=== PATIENT | female | born 2000 | race Caucasian/White ===

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

== ENCOUNTER 2019-05-17 16:55 | Emergency (ER) | payer MEDICAID ==
[2019-05-17 17:45] VITALS: BP 121/84
[2019-05-17] MEDS ORDERED: dexamethasone 4mg tablet PO ONE (19:00)
[2019-05-17] MEDS ORDERED: PRED20TA PO (19:10)
== END 2019-05-17 20:05 | disposition home or self-care (01) ==
LOC: ER 16:56
DX: J02.9 Acute pharyngitis, unspecified (principal); B27.90 Infectious mononucleosis, unspecified without complication; Z79.899 Other long term (current) drug therapy
CPT/HCPCS: 99283

== ENCOUNTER 2019-05-19 11:49 | Emergency (ER) | payer MEDICAID ==
[~2019-05-19] VITALS: Ht 162.6 cm; Wt 60.0 kg
[~2019-05-19 11:49] MED LIST changes: +PRED20TA PO
[2019-05-19 13:33] VITALS: BP 132/76
[2019-05-19 14:00] LABS: BASOPHILS % (AUTO) 0.2 % (0-1); EOSINOPHILS % (AUTO) 0.1 % (0-6); HEMOGLOBIN 12.6 g/dl (12.0-16.0); LYMPHOCYTES # (AUTO) 2.7 X10'3 (1.1-4.8); MEAN CORPUSCULAR HGB CONC 33.3 g/dL (33.0-36.5); MEAN CORPUSCULAR VOLUME 87.1 FL (78-98); MEAN PLATELET VOLUME 8.7 FL (7.4-10.4); MONOCYTES # (AUTO) 0.8 X10'3 (0-0.9); MONOCYTES % (AUTO) 8.1 % (2-12); NEUTROPHILS % (AUTO) 63.6 % (42-75); PLATELET COUNT 249 X10'3 (140-440); RED BLOOD COUNT 4.36 X10'6 (4.20-5.60); RED CELL DISTRIBUTION WIDTH 13.9 % (11.5-14.5); WHITE BLOOD COUNT 9.5 X10'3 (4.5-11.0)
[2019-05-19 14:02] LABS: ALANINE AMINOTRANSFERASE 12 U/L (12-78); ALBUMIN 4.1 G/DL (3.4-5.0); ALBUMIN/GLOBULIN RATIO 1.1 (1.1-1.5); ALKALINE PHOSPHATASE 70 IU/L (20-180); ANION GAP 12 (8-16); ASPARTATE AMINO TRANSFERASE 15 U/L (10-37); BILIRUBIN,TOTAL 0.3 MG/DL (0.1-1.0); BLOOD UREA NITROGEN 16 MG/DL (7-18); BUN/CREATININE RATIO 22.9 (6.6-38.0); CALCIUM 9.5 MG/DL (8.5-10.1); CHLORIDE 107 MMOL/L (99-107); GLUCOSE 97 MG/DL (70-104); LIPASE 73 U/L (73-393); POTASSIUM 3.5 MMOL/L (3.5-5.1); SODIUM 144 MMOL/L (135-145); TOTAL CARBON DIOXIDE 25.2 MMOL/L (24-32); TOTAL PROTEIN 7.8 G/DL (6.4-8.2); eGFR > 90 ML/MIN
== END 2019-05-19 14:42 | disposition home or self-care (01) ==
LOC: ER 11:49
DX: R10.12 Left upper quadrant pain (principal); Z86.19 Personal history of other infectious and parasitic diseases; Z79.2 Long term (current) use of antibiotics
CPT/HCPCS: 36415; 76700; 80053; 83690; 85025; 99284

== ENCOUNTER 2020-02-24 14:28 | Emergency (ER) | payer MEDICAID ==
[~2020-02-24] VITALS: Ht 165.1 cm; Wt 54.5 kg
[~2020-02-24 14:28] MED LIST changes: -CIPR2.5D18 OP; +CIPR2.5D21 OP; -PRED20TA PO
== END 2020-02-24 15:00 | disposition home or self-care (01) ==
LOC: ER 14:28
DX: U07.1 COVID-19 (principal); R50.9 Fever, unspecified; R53.83 Other fatigue; R05 Cough; R19.7 Diarrhea, unspecified; R43.8 Other disturbances of smell and taste; Z79.2 Long term (current) use of antibiotics; Z79.899 Other long term (current) drug therapy
CPT/HCPCS: 36415; 87635; 99283

== ENCOUNTER 2023-09-24 12:29 | Emergency (ER) | payer BC, MEDICAID ==
[~2023-09-24] VITALS: Ht 165.1 cm; Wt 48.9 kg
[2023-09-24 12:44] VITALS: BP 158/86; PULSE 73; RESP 14; TEMP 98.3; O2SAT 96
[2023-09-24] MEDS ORDERED: IBUP-1984 PO (13:43)
== END 2023-09-24 15:51 | disposition home or self-care (01) ==
LOC: ER 12:29
DX: M71.22 Synovial cyst of popliteal space [Baker], left knee (principal); Z79.2 Long term (current) use of antibiotics; Z79.899 Other long term (current) drug therapy
CPT/HCPCS: 73564; 76882; 99284

== ENCOUNTER 2024-08-28 20:54 | Emergency (ER) | payer BC ==
[~2024-08-28] VITALS: Ht 165.1 cm; Wt 58.4 kg
--- NOTE | 2024-08-28 21:54 | RADIOLOGY REPORT ---
COMPUTERIZED TOMOGRAPHY OF THE HEAD WITHOUT CONTRAST REASON FOR STUDY: headache COMPARISON: None TECHNIQUE: Helical tomographic scans were obtained through the brain. 2-D coronal and sagittal refor matted images are provided. Automated exposure control was used. RADIATION DOSE: CTDI: 60 mGy DLP: 1004 mGy-cm FINDINGS: No suspicious intracranial hyperdensity to suggest acute blood. There is no mass effect n or midline shift. There is no hydrocephalus. The suprasellar cistern is intact. The calvarium is inta ct. The visualized mastoid air cells and paranasal sinuses are clear. IMPRESSION: No acute intracranial abnormality.
[2024-08-28 21:56] LABS: BILIRUBIN,URINE NEGATIVE (Neg); CLARITY,URINE SLIGHTLY CLOUDY (Clear); COLOR,URINE YELLOW (Yellow); GLUCOSE, URINE NEGATIVE (Neg); KETONES,URINE NEGATIVE (Neg); LEUKOCYTE ESTERASE ,URINE LARGE (Neg); NITRITES, URINE NEGATIVE (Neg); OCCULT BLOOD,URINE LARGE (Neg); PROTEIN,URINE NEGATIVE (Neg); UROBILINOGEN,URINE 0.2 E.U/dL (0.2-1.0)
[2024-08-28 21:58] LABS: UA COLLECTION TYPE CLN CATCH MIDSTREAM
[2024-08-28] MEDS: normal saline 1000ml 1,000 ML IV ONE (21:58)
[2024-08-28 22:03] LABS: SQUAMOUS EPITHELIAL CELL,UR MODERATE /LPF (FEW)
[2024-08-28 22:04] LABS: MUCUS STRANDS FEW /LPF (Neg); WBC CLUMPS,URINE FEW /HPF (NEGATIVE); WBC,URINE 50-100 /HPF (0-4)
[2024-08-28 22:05] LABS: BACTERIA,URINE 1+ /HPF (Neg)
[2024-08-28] MEDS: metoclopramide 5 mg/ml inj IV ONE (22:40)
[2024-08-28] MEDS: diphenhydrAMINE 50 mg/ml inj IV ONE (22:40)
[2024-08-28 22:41] LABS: BASOPHILS % (AUTO) 0.3 % (0-1); EOSINOPHILS # (AUTO) 0.1 X10'3 (0-0.9); EOSINOPHILS % (AUTO) 1.3 % (0-6); HEMATOCRIT 41.2 % (35.0-45.0); HEMOGLOBIN 13.5 g/dl (12.0-16.0); LYMPHOCYTES # (AUTO) 2.1 X10'3 (1.1-4.8); LYMPHOCYTES % (AUTO) 22.4 % (21-51); MEAN CORPUSCULAR HEMOGLOBIN 27.9 PG (27.0-31.0); MEAN CORPUSCULAR HGB CONC 32.9 g/dL (33.0-36.5); MEAN CORPUSCULAR VOLUME 84.9 FL (78-98); MEAN PLATELET VOLUME 7.7 FL (7.4-10.4); MONOCYTES # (AUTO) 0.4 X10'3 (0-0.9); MONOCYTES % (AUTO) 4.6 % (2-12); NEUTROPHILS # (AUTO) 6.6 X10'3 (1.8-7.7); NEUTROPHILS % (AUTO) 71.4 % (42-75); PLATELET COUNT 308 X10'3 (140-440); RED BLOOD COUNT 4.85 X10'6 (4.20-5.60); RED CELL DISTRIBUTION WIDTH 15.2 % (11.5-14.5); WHITE BLOOD COUNT 9.2 X10'3 (4.5-11.0)
[2024-08-28] MEDS: ketorolac trometh 30MG/ML vial 30 MG/ML VIAL IV ONE (22:41)
[2024-08-28 22:58] LABS: ALANINE AMINOTRANSFERASE 32 U/L (12-78); ALBUMIN 3.4 G/DL (3.4-5.0); ALBUMIN/GLOBULIN RATIO 0.9 (1.1-1.5); ALKALINE PHOSPHATASE 124 IU/L (46-116); ANION GAP 11 (8-16); ASPARTATE AMINO TRANSFERASE 21 U/L (10-37); BILIRUBIN,TOTAL 0.3 MG/DL (0.1-1.0); BLOOD UREA NITROGEN 22 MG/DL (7-18); BUN/CREATININE RATIO 29.3 (10.0-20.0); CALCIUM 8.9 MG/DL (8.5-10.1); CHLORIDE 107 MMOL/L (99-107); CREATININE 0.75 MG/DL (0.40-0.90); GLUCOSE 108 MG/DL (70-104); POTASSIUM 3.8 MMOL/L (3.5-5.1); SODIUM 142 MMOL/L (135-145); TOTAL CARBON DIOXIDE 23.6 MMOL/L (24-32); TOTAL PROTEIN 7.1 G/DL (6.4-8.2); eCRCL 103 ML/MIN; eGFR > 90 ML/MIN
[2024-08-28] MEDS: magnesium sulf-water 2g/50mL 50 ML IV ONE (23:03)
[2024-08-29 00:01] VITALS: TEMP 96.8
[2024-08-29] MEDS: acetaminophen 1,000mg/100ml IV 100 ML IV ONE (00:15)
[2024-08-29] MEDS: HYDROmorphone inj. 0.5 MG/0.5 ML DISP.SYRIN IV ONE (00:58)
--- NOTE | 2024-08-29 00:58 | Physician Documentation ---
History of Present Illness ~ Chief Complaint: Complications Stated Complaint: HEADACHE Time Seen by MD: 21:16 Primary Medical Doctor: [facility] Mode of Arrival: POV, Ambulatory HPI 24 year old female is 10 days s/p normal vaginal delivery of full term baby. Her course was uncomplicated. She reports developing a splitting headache today, R>L, throbbing, constant. She also passed several clots since her delivery but denies abdominal pain, fevers, N/V/D. She reports that her lower extremity swelling, present for most of her , has resolved. Medication Reconciliation Allergies: Coded Allergies: No Known Allergies (Unverified , 08/28/24) Scheduled Amoxicillin (Amoxicillin), 875 MG PO BID Ciprofloxacin Hcl Ophth* (Ciloxan 0.35 Ophth Drops*), 2 DROP OP Q4HWA Ketotifen Fumarate (Zyrtec Itchy Eye), 1 DROP OP Q8H Miscellaneous Medications [ Control Pill], (Reported) Past Medical History Past Medical History: No Pertinent History, *ENT* Past Surgical History: no surgical history Alcohol Use: None Drug Use: none Lives with: Family Lives In: Home Occupation: child Review of Systems All Other Systems at this time: Reviewed and Negative Physical Exam Vital Signs: RN Vital Signs have been reviewed: Yes, Temperature: 96.8, Source: Oral, Heart Rate: 60, Respiratory Rate: 16, BP: 125/75, Pulse Oximetry: 99, Weight: 58.400 Oxygen Flow Rate: 0 Physical Exam HEENT: PERRL, moist oral mucosa, EOMI Pulmonary: No respiratory distress Cardiac: RRR, no murmur, rub or gallop GI: nondistended, soft, nontender, no guarding, no rebound MSK: no deformity; no peripheral edema Skin: w/d/i, no rash Neuro: alert, nonfocal Psych: normal affect Progress Results/Orders Results/Orders Orders - JACOBO CONRAD MD Ct Head (08/28/24 21:18) Cult Urine + [place] Ct (08/28/24 22:07) Metoclopramide Inj (Reglan Inj) (08/28/24 22:10) Magnesium Sulf-Water 2g/50ml (Magnesium (08/28/24 22:55) Completed Orders - JACOBO CONRAD MD Cbc/Diff (08/28/24 21:18) CMP (08/28/24 21:18) Ct Head (08/28/24 21:18) Normal Saline 1000ml (Sodium Chloride 10 (08/28/24 21:25) Ua W/Microscopic, Cult If Ind (08/28/24 21:25) Diphenhydramine Inj (Benadryl Inj.) (08/28/24 22:10) Ketorolac Trometh 30mg/Ml Vial (Toradol (08/28/24 22:35) Hydromorphone 0.5 Mg/0.5 Ml/Pf (Dilaudid (08/28/24 22:55) Acetaminophen 1,000mg/100ml Iv (Ofirmev (08/28/24 22:55) Medications Received in ER Medications (Trade) Dose Ordered Sig/Jay Route PRN Reason Start Time Stop Time Status Last Admin Dose Admin Sodium Chloride 1,000 ml @ 1,000 mls/hr ONCE ONCE IV 08/28/24 21:25 08/28/24 22:24 DC 08/28/24 21:58 1,000 MLS/HR (Benadryl inj.) 50 mg ONCE ONCE IV 08/28/24 22:10 08/28/24 22:11 DC 08/28/24 22:40 50 MG (Reglan inj) 10 mg ONCE ONCE IV 08/28/24 22:10 08/28/24 22:11 DC 08/28/24 22:40 10 MG (Toradol inj. 30mg/ml) 30 mg ONCE ONCE IV 08/28/24 22:35 08/28/24 22:36 DC 08/28/24 22:41 30 MG Acetaminophen 100 ml @ 400 mls/hr ONCE ONCE IV 08/28/24 22:55 08/28/24 23:09 DC 08/29/24 00:15 400 MLS/HR Magnesium Sulfate 50 ml @ 25 mls/hr ONCE ONCE IV 08/28/24 22:55 08/29/24 00:54 08/28/24 23:03 25 MLS/HR Vital Signs 08/28/24 08/28/24 08/28/24 08/28/24 21:04 21:27 21:27 22:03 Temp 96.8 96.8 96.8 Pulse 79 69 60 Resp 15 16 16 16 B/P (MAP) 152/98 130/88 (102) 137/90 (106) Pulse Ox 99 99 99 O2 Flow Rate 0 0 08/28/24 08/28/24 08/28/24 08/28/24 22:15 22:29 22:41 22:43 Pulse 62 60 65 Resp 16 16 16 16 B/P (MAP) 150/120 (130) 149/96 (113) 161/106 (124) Pulse Ox 100 100 98 O2 Flow Rate 0 0 08/28/24 08/28/24 08/28/24 08/28/24 23:06 23:15 23:30 23:45 Pulse 59 56 62 65 Resp 18 16 16 16 B/P (MAP) 146/92 (110) 130/88 (102) 128/82 (97) 130/85 (100) Pulse Ox 100 100 99 99 O2 Flow Rate 0 0 0 0 08/29/24 08/29/24 00:01 00:17 Temp 96.8 Pulse 68 60 Resp 16 16 B/P (MAP) 121/64 (83) 125/75 (92) Pulse Ox 98 99 O2 Flow Rate 0 0 Laboratory Tests Test 08/28/24 21:25 08/28/24 21:50 Urine Specimen Description Cln catch midstream Urine Color Yellow Urine Clarity Slightly cloudy Urine pH 6.0 Urine Specific [place] 1.010 Urine Protein Negative Urine Glucose (UA) Negative Urine Ketones Negative Urine Occult Blood Large H Urine Nitrite Negative Urine Bilirubin Negative Urine Urobilinogen 0.2 Urine Leukocyte Esterase Large H Urine RBC 10-20 Urine WBC 50-100 H Urine WBC Cl[place] Few Urine Squamous Epithelial Cells Moderate Urine Bacteria 1+ Urine Mucus Few Urine Other Urine Culture Indicated Indicated Volume Urine Centrifuged 10 ml Urine Comment White Blood Count 9.2 Red Blood Count 4.85 Hemoglobin 13.5 Hematocrit 41.2 Mean Corpuscular Volume 84.9 Mean Corpuscular Hemoglobin 27.9 Mean Corpuscular Hemoglobin Concent 32.9 L Red Cell Distribution Width 15.2 H Platelet Count 308 Mean Platelet Volume 7.7 Neutrophils (%) (Auto) 71.4 Lymphocytes (%) (Auto) 22.4 Monocytes (%) (Auto) 4.6 Eosinophils (%) (Auto) 1.3 Basophils (%) (Auto) 0.3 Neutrophils # (Auto) 6.6 Lymphocytes # (Auto) 2.1 Monocytes # (Auto) 0.4 Eosinophils # (Auto) 0.1 Basophils # (Auto) 0.0 CBC Comment Sodium Level 142 Potassium Level 3.8 Chloride Level 107 Carbon Dioxide Level 23.6 L Anion Gap 11 Blood Urea Nitrogen 22 H Creatinine 0.75 Estimated GFR/1.73 m2 > 90 BUN/Creatinine Ratio 29.3 H Glucose Level 108 H Calcium Level 8.9 Total Bilirubin 0.3 Aspartate Amino Transf (AST/SGOT) 21 Alanine Aminotransferase (ALT/SGPT) 32 Alkaline Phosphatase 124 H Total Protein 7.1 Albumin 3.4 Globulin 3.7 Albumin/Globulin Ratio 0.9 L Chemistry Comments Microbiology Date/Time Source Procedure Growth Status 08/28/24 22:07 Urine Clean Catch Midstream Urine Culture - Preliminary Culture received. Resulted Medical Decision Making Findings 24 year old female with headache, hypertensive on arrival, and recently . The concern immediately was for preeclampsia and an appropriate workup was initiated. Her laboratory tests including CBC/CMP/UA demonstrated no evidence of preeclampsia, however, with no protein noted in her urine, normal liver enzymes and platelets. IVF, meds, improved. Her blood pressure markedly improved over the course of her ED stay. However her urine did suggest a possible UTI which we will treat. 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 Differential Dx:Considerations: Include: CHACKO-Migraine, CHACKO-Hypertensive, Carbon monoxide toxicity, Trigeminal neuralgia Additional Comment DDx includes: preeclampsia, HELLP syndrome Departure Disposition: HOME / SELF CARE / HOMELESS Impression: Primary Impression: Headache Additional Impression: Hypertension Condition: Stable Discharge Instructions: Preeclampsia and Eclampsia Referrals: NO PRIMARY CARE PROVIDER (PCP) Education Educated: Patient Educated regarding: diagnosis, treatment, prognosis, need for follow up Signature Scribe Signature: . Attestation: . JACOBO CONRAD MD Aug 29, 2024 00:58
[2024-08-29 01:06] VITALS: BP 123/79; PULSE 82; RESP 16; O2SAT 98
== END 2024-08-29 01:20 | disposition home or self-care (01) ==
LOC: ER 20:55
DX: R51.9 Headache, unspecified (principal); I10 Essential (primary) hypertension
CPT/HCPCS: 36415; 70450; 80053; 81001; 85025; 87088; 96361; 96365; 96366; 96375; 99285; J0131; J1171; J1200; J1885; J2765; J7030

== ENCOUNTER 2024-09-02 21:00 | Emergency (ER) | payer BC ==
[~2024-09-02] VITALS: Ht 165.1 cm; Wt 58.6 kg
[2024-09-02 21:06] VITALS: TEMP 98.5
[2024-09-02 21:38] LABS: BASOPHILS # (AUTO) 0.1 X10'3 (0-0.2); BASOPHILS % (AUTO) 0.7 % (0-1); EOSINOPHILS # (AUTO) 0.2 X10'3 (0-0.9); EOSINOPHILS % (AUTO) 2.2 % (0-6); HEMATOCRIT 42.4 % (35.0-45.0); HEMOGLOBIN 14.2 g/dl (12.0-16.0); LYMPHOCYTES # (AUTO) 2.4 X10'3 (1.1-4.8); LYMPHOCYTES % (AUTO) 27.5 % (21-51); MEAN CORPUSCULAR HEMOGLOBIN 28.2 PG (27.0-31.0); MEAN CORPUSCULAR HGB CONC 33.4 g/dL (33.0-36.5); MEAN CORPUSCULAR VOLUME 84.4 FL (78-98); MEAN PLATELET VOLUME 7.9 FL (7.4-10.4); MONOCYTES # (AUTO) 0.5 X10'3 (0-0.9); MONOCYTES % (AUTO) 5.4 % (2-12); NEUTROPHILS # (AUTO) 5.6 X10'3 (1.8-7.7); NEUTROPHILS % (AUTO) 64.2 % (42-75); PLATELET COUNT 339 X10'3 (140-440); RED BLOOD COUNT 5.02 X10'6 (4.20-5.60); RED CELL DISTRIBUTION WIDTH 15.2 % (11.5-14.5); WHITE BLOOD COUNT 8.8 X10'3 (4.5-11.0)
[2024-09-02 21:54] LABS: ALANINE AMINOTRANSFERASE 28 U/L (12-78); ALBUMIN 3.7 G/DL (3.4-5.0); ALBUMIN/GLOBULIN RATIO 1.1 (1.1-1.5); ALKALINE PHOSPHATASE 121 IU/L (46-116); ANION GAP 11 (8-16); ASPARTATE AMINO TRANSFERASE 20 U/L (10-37); BILIRUBIN,TOTAL 0.2 MG/DL (0.1-1.0); BLOOD UREA NITROGEN 26 MG/DL (7-18); CALCIUM 9.3 MG/DL (8.5-10.1); CHLORIDE 106 MMOL/L (99-107); CREATININE 1.04 MG/DL (0.40-0.90); GLUCOSE 101 MG/DL (70-104); LIPASE 26 U/L (16-77); POTASSIUM 4.2 MMOL/L (3.5-5.1); SODIUM 141 MMOL/L (135-145); TOTAL CARBON DIOXIDE 23.9 MMOL/L (24-32); eCRCL 74 ML/MIN; eGFR 65 ML/MIN
[2024-09-02 22:29] LABS: BILIRUBIN,URINE NEGATIVE (Neg); COLOR,URINE YELLOW (Yellow); GLUCOSE, URINE NEGATIVE (Neg); KETONES,URINE NEGATIVE (Neg); LEUKOCYTE ESTERASE ,URINE SMALL (Neg); NITRITES, URINE NEGATIVE (Neg); OCCULT BLOOD,URINE LARGE (Neg); PROTEIN,URINE NEGATIVE (Neg); UROBILINOGEN,URINE 0.2 E.U/dL (0.2-1.0)
[2024-09-02 22:30] VITALS: BP 109/56; PULSE 71; O2SAT 99
[2024-09-02 22:30] LABS: LACTATE DEHYDROGENASE 188 U/L (81-234)
[2024-09-02 22:32] LABS: CLARITY,URINE SLIGHTLY CLOUDY (Clear); UA COLLECTION TYPE CLN CATCH MIDSTREAM
[2024-09-02 22:35] LABS: MUCUS STRANDS FEW /LPF (Neg); SQUAMOUS EPITHELIAL CELL,UR MODERATE /LPF (FEW)
[2024-09-02 22:36] LABS: BACTERIA,URINE FEW /HPF (Neg)
--- NOTE | 2024-09-02 22:42 | Physician Documentation ---
History of Present Illness ~ Chief Complaint: Hypertension Stated Complaint: RE-EVAL Time Seen by MD: 21:15 Primary Medical Doctor: the medical center Source: patient, family Mode of Arrival: POV Exam Limitations: no limitations HPI Patient who is postop vaginal delivery by 2 weeks over at [facility] in with headache and high blood pressure. This is her 1st . She had a vaginal delivery and had some blood loss but did not need a transfusion. She states she has been having some more clots passing today. She reports she did have an ultrasound following her . Follow-up with her OB is tomorrow. She was seen here 4 days ago for high blood pressure and headache. Head CT was unremark able. Treated for headache at that time. Blood pressure resolved on its own so no medication given. Currently reports a 10/10 frontal headache. She states she has been trying to stay hydrated. Baby is bottle feeding. Otherwise healthy. No belly pain, dysuria or edema. Medication Reconciliation Allergies: Coded Allergies: No Known Allergies (Unverified , 09/02/24) Scheduled Amoxicillin (Amoxicillin), 875 MG PO BID Ciprofloxacin Hcl Ophth* (Ciloxan 0.35 Ophth Drops*), 2 DROP OP Q4HWA Ketotifen Fumarate (Zyrtec Itchy Eye), 1 DROP OP Q8H Miscellaneous Medications [ Control Pill], (Reported) Past Medical History Past Medical History: No Pertinent History, *ENT* Past Surgical History: no surgical history Alcohol Use: None Drug Use: none Lives with: Family Lives In: Home Occupation: child Review of Systems All Other Systems at this time: Reviewed and Negative Physical Exam Vital Signs: Temperature: 98.5, Source: Temporal, Heart Rate: 80, Respiratory Rate: 16, BP: 149/104, Pulse Oximetry: 99, Weight: 58.600 Physical Exam General: Alert and oriented x4, well-appearing, well-nourished, uncomfortable appearing HEENT: Normocephalic, atraumatic, no visible or palpable masses or depression, extraocular movements intact, PERRLA, no scleral icterus, neck is supple and nontender, mucous membranes moist Heart: Regular rate Lungs: Clear, normal work of breathing Abdomen: Soft, nontender, Extremities: Full range of motion, no acute deformity, no cyanosis or edema Musculoskeletal: Normal gait, normal tone Neurologic: Cranial nerves 2-12 are intact, Psychiatric: Alert and oriented x4, judgment and insight normal, normal mood and affect Skin: Good turgor, mild macular erythematous rash in the anterior chest Progress Results/Orders Results/Orders Orders - MARTA DAVIS MD Straight Cath For Urine Sample (09/02/24 21:14) Cult Urine + [place] Ct (09/02/24 22:37) Completed Orders - MARTA DAVIS MD Cbc/Diff (09/02/24 21:14) BMP (09/02/24 21:14) Lipase (09/02/24 21:14) CMP (09/02/24 21:14) Type And Screen (09/02/24 21:14) Labetalol Inj. (Trandate 20 Mg/4ml Syrin (09/02/24 22:16) LDH (09/02/24 21:27) Normal Saline 1000ml (Sodium Chloride 10 (09/02/24 22:35) Ua W/Microscopic, Cult If Ind (09/02/24 22:20) Ketorolac Trometh 30mg/Ml Vial (Toradol (09/02/24 22:35) Diphenhydramine Inj (Benadryl Inj.) (09/02/24 23:05) Fentanyl/Pf (Fentanyl 0.05 Mg/Ml Syringe (09/03/24 00:25) Medications Received in ER Medications (Trade) Dose Ordered Sig/Jay Route PRN Reason Start Time Stop Time Status Last Admin Dose Admin Sodium Chloride 1,000 ml @ 1,000 mls/hr ONCE ONCE IV 09/02/24 22:35 09/02/24 23:34 DC 09/02/24 23:10 1,000 MLS/HR (Toradol inj. 30mg/ml) 30 mg ONCE ONCE IV 09/02/24 22:35 09/02/24 22:36 DC 09/02/24 23:10 30 MG (Benadryl inj.) 25 mg ONCE ONCE IV 09/02/24 23:05 09/02/24 23:06 DC 09/02/24 23:09 25 MG (fentaNYL 0.05 MG/ML syringe) 75 mcg ONCE ONCE IV 09/03/24 00:25 09/03/24 00:26 DC 09/03/24 01:07 75 MCG Vital Signs 09/02/24 09/02/24 09/02/24 21:06 22:30 23:10 Temp 98.5 Pulse 80 71 Resp 16 15 16 B/P (MAP) 149/104 109/56 (73) Pulse Ox 99 99 Laboratory Tests Test 09/02/24 21:27 09/02/24 22:20 White Blood Count 8.8 Red Blood Count 5.02 Hemoglobin 14.2 Hematocrit 42.4 Mean Corpuscular Volume 84.4 Mean Corpuscular Hemoglobin 28.2 Mean Corpuscular Hemoglobin Concent 33.4 Red Cell Distribution Width 15.2 H Platelet Count 339 Mean Platelet Volume 7.9 Neutrophils (%) (Auto) 64.2 Lymphocytes (%) (Auto) 27.5 Monocytes (%) (Auto) 5.4 Eosinophils (%) (Auto) 2.2 Basophils (%) (Auto) 0.7 Neutrophils # (Auto) 5.6 Lymphocytes # (Auto) 2.4 Monocytes # (Auto) 0.5 Eosinophils # (Auto) 0.2 Basophils # (Auto) 0.1 CBC Comment Sodium Level 141 Potassium Level 4.2 Chloride Level 106 Carbon Dioxide Level 23.9 L Anion Gap 11 Blood Urea Nitrogen 26 H Creatinine 1.04 H Estimated GFR/1.73 m2 65 BUN/Creatinine Ratio 25.0 H Glucose Level 101 Calcium Level 9.3 Total Bilirubin 0.2 Aspartate Amino Transf (AST/SGOT) 20 Alanine Aminotransferase (ALT/SGPT) 28 Alkaline Phosphatase 121 H Lactate Dehydrogenase 188 Total Protein 7.0 Albumin 3.7 Globulin 3.3 Albumin/Globulin Ratio 1.1 Lipase 26 Chemistry Comments Urine Specimen Description Cln catch midstream Urine Color Yellow Urine Clarity Slightly cloudy Urine pH 6.0 Urine Specific [place] 1.025 Urine Protein Negative Urine Glucose (UA) Negative Urine Ketones Negative Urine Occult Blood Large H Urine Nitrite Negative Urine Bilirubin Negative Urine Urobilinogen 0.2 Urine Leukocyte Esterase Small H Urine RBC 10-20 Urine WBC 10-20 H Urine Squamous Epithelial Cells Moderate Urine Bacteria Few Urine Mucus Few Urine Culture Indicated Indicated Volume Urine Centrifuged 10 ml Urine Comment Microbiology Date/Time Source Procedure Growth Status 09/02/24 22:37 Urine Clean Catch Midstream Urine Culture - Preliminary Culture received. Resulted Departure Disposition: HOME / SELF CARE / HOMELESS Impression: Primary Impression: Headache Qualified Codes: R51.9 - Headache, unspecified Additional Impression Text Patient and who initially had slightly elevated pressure 140/91. When she was in the ER at resolved and she did not need any medication. She had received fluids, Toradol and IV Benadryl which did not help with her headache. She then received fentanyl which did help with the headache it did however return prior to leaving. She felt like she wanted to go home and get some rest. She has follow-up with her devops developer today. Urinalysis showed possible UTI as did her last 1 but urine culture did not grow anything out. No UTI symptoms. No protein in her urine. Liver enzymes unremarkable. Discharged home in good condition. Keep appointment today and return here if new or worsening symptoms. Condition: Stable Discharge Instructions: General Headache Without Cause, [id number] Additional Instructions: Keep your follow-up tomorrow. Return if new or worsening symptoms prior to that time. Referrals: NO PRIMARY CARE PROVIDER (PCP) Education Educated: Patient Educated regarding: diagnosis, treatment, prognosis, need for follow up Signature Scribe Signature: No scribe Attestation: No scribMARTA Espinoza MD Sep 02, 2024 22:42
[2024-09-02] MEDS: diphenhydrAMINE 50 mg/ml inj IV ONE (23:09)
[2024-09-02 23:10] VITALS: RESP 16
[2024-09-02] MEDS: ketorolac trometh 30MG/ML vial 30 MG/ML VIAL IV ONE (23:10)
[2024-09-02] MEDS: normal saline 1000ml 1,000 ML IV ONE (23:10)
[2024-09-02] MEDS: labetalol 20mg/4ml (5mg/ml) syringe IV STA (23:11)
[2024-09-03] MEDS: fentaNYL/PF 50MCG/1 ML 2ML syringe IV ONE (01:07)
== END 2024-09-03 02:31 | disposition home or self-care (01) ==
LOC: ER 21:01
DX: R51.9 Headache, unspecified (principal); I10 Essential (primary) hypertension
CPT/HCPCS: 36415; 80053; 81001; 83615; 83690; 85025; 86885; 86900; 86901; 87088; 96361; 96374; 96375; 99284; J1200; J1885; J3010; J7030